=== PATIENT | female | born 1980 ===

== ENCOUNTER 2024-12-02 18:04 | Emergency (ER) | payer OTHER, SELFPAY ==
[2024-12-02 18:06] VITALS: BP 150/77; PULSE 67; RESP 20; TEMP 36.1; O2SAT 98; BMI 39.8
[2024-12-02 19:03] LABS: Influenza A - CEPHEID Flu A NEGATIVE (NEGATIVE); Influenza B - CEPHEID Flu B NEGATIVE (NEGATIVE); Respiratory Syncytial Virus Negative (Negative)
[2024-12-02 19:05] LABS: COVID-19 CEPHEID 4-PLEX PCR Negative (Negative)
--- NOTE | 2024-12-03 14:39 | CM.SWNOTE ---
ED PAPER TWISTER Assessment Note: Pt is a 44yo female, resident of [place], presented to the ED for concerns of hip pain due to Ankylosing Spondylitis. Patient left without being seen. Per EMR review, an insurance screen was completed and eligibility for [employer] returned as active. 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 Reviewed chart, PAPER TWISTER consulted for a follow up call as pt reports she does not have insurance and reports of PTSD, panic attacks on consult. PAPER TWISTER calls cell phone on pt file, introduced self and role. Pt states she is doing better than yesterday. Pt endorses she left her job last month and was told she does not have insurance. PAPER TWISTER discussed insurance screening completed when she presented to the ED notes active insurance with [employer]. Pt apprehensive to believe this. 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 PAPER TWISTER discusses [employer] portal to speak with patient insurance counselor. PAPER TWISTER inquired if there are any other community resources she can provide at this time, pt circumstantial in speech and suddenly stated she was embarrassed that she has to state that she does not have insurance, I said this already. PAPER TWISTER apologized and redirected to insurance screening, pt declined to speak further. Pt would benefit from speaking with [employer] counselor (ph# [phone]) to discuss insurance needs. Pt would also benefit from referrals if receptive. Nichol Barnes [employer]ER
== END 2024-12-03 00:29 | disposition left against medical advice (07) ==
PROVIDERS: Emergency Provider Emergency Medicine
DX: M79.10 Myalgia, unspecified site (principal)
CPT/HCPCS: 0241U; 99281